=== PATIENT | female | born 1940 | race Asian ===

== ENCOUNTER 2016-09-05 07:24 | Day surgery (SDC) | payer MEDICARE, OTHER ==
[~2016-09-05] VITALS: Ht 157.5 cm; Wt 62.7 kg
[~2016-09-05 07:24] MED LIST: ASPI81TA2 PO; ATOR10TA69 PO; CARV3 PO; FEBU40T PO; MULT-959 PO; OMEG-11 PO; RANO500T3 PO
[2016-09-05] MEDS ORDERED: TROPICAMIDE 1% 2 ML OPHTHALMIC SOLUTION ONE (07:38)
[2016-09-05] MEDS ORDERED: BESIFLOXACIN HCL 0.6% 5 ML OPHTHALMIC SUSPENSION ONE (07:38)
[2016-09-05] MEDS ORDERED: PHENYLEPHRINE HCL 2.5% 2 ML OPHTHALMIC SOLUTION ONE (07:38)
[2016-09-05] MEDS ORDERED: DICLOFENAC SODIUM 0.1% 2.5 ML OPHTHALMIC SOLUTION ONE (07:38)
[2016-09-05] MEDS ORDERED: RINGERS SOLUTION,LACTATED 500 ML IV ONE ×2 (07:38→08:00)
[2016-09-05] MEDS ORDERED: DICLOFENAC SODIUM 0.1% 2.5 ML OPHTHALMIC SOLUTION OS ONE (08:00)
[2016-09-05] MEDS ORDERED: BESIFLOXACIN HCL 0.6% 5 ML OPHTHALMIC SUSPENSION OS ONE (08:00)
[2016-09-05] MEDS: PHENYLEPHRINE HCL 2.5% 2 ML OPHTHALMIC SOLUTION OS SCH ×2 (08:19→08:25)
[2016-09-05] MEDS: TROPICAMIDE 1% 2 ML OPHTHALMIC SOLUTION OS SCH ×2 (08:19→08:25)
[2016-09-05] MEDS ORDERED: VALS160T2 PO (08:29)
[2016-09-05] MEDS ORDERED: MIDAZOLAM HCL 2 MG/2 ML VIAL IVP ONE (12:00)
[2016-09-05] MEDS ORDERED: FentaNYL CITRATE-PF 100 MCG/2 ML VIAL IVP ONE (12:00)
[2016-09-05] MEDS ORDERED: HYALURONATE SOD/CHONDROITIN SOD 0.5 ML VIAL IO ONE (15:41)
[2016-09-05] MEDS ORDERED: POVIDONE-IODINE 15 ML SOLUTION UD TP ONE (15:41)
[2016-09-05] MEDS ORDERED: TETRACAINE HCL VISCOUS 0.5% 0.6 ML OPHTHALMIC SOLUTION OD ONE (15:41)
[2016-09-05] MEDS ORDERED: BALANCED SALT 15 ML OPHTHALMIC IRRIG.SOLN IO ONE (15:41)
[2016-09-05] MEDS ORDERED: LIDOCAINE HCL 1% 20 ML VIAL IARTIC ONE (15:41)
[2016-09-05] MEDS ORDERED: HYALURONATE SODIUM 12 MG/ML 0.8 ML SYRINGE IO ONE (15:41)
== END 2016-09-05 10:45 | disposition home or self-care (01) ==
LOC: SURGERY 07:24
PROVIDERS: ATTEND Specialist
DX: H25.012 Cortical age-related cataract, left eye (principal); I25.10 Atherosclerotic heart disease of native coronary artery without angina pectoris; I10 Essential (primary) hypertension; E78.00 Pure hypercholesterolemia, unspecified; M19.90 Unspecified osteoarthritis, unspecified site; Z90.49 Acquired absence of other specified parts of digestive tract; Z90.710 Acquired absence of both cervix and uterus
CPT/HCPCS: 66984; 93005; C1780; J2250; J3010; J3490 ×2; J7120

== ENCOUNTER 2017-05-27 11:35 | Emergency (ER) | payer MEDICARE, OTHER ==
[~2017-05-27] VITALS: Ht 157.5 cm; Wt 62.3 kg
[~2017-05-27 11:35] MED LIST changes: -ASPI81TA2 PO; +ASPI81TA39 PO; +VALS160T2 PO
[2017-05-27] MEDS ORDERED: LEVO500 PO (11:40)
[2017-05-27] MEDS ORDERED: GUAIF600 PO (11:40)
[2017-05-27] MEDS ORDERED: HYDR10TA31 PO (11:43)
[2017-05-27] MEDS ORDERED: NITR.4 SL (11:43)
[2017-05-27 13:10] LABS: INFLUENZA TYPE B NEGATIVE FOR TYPE B (NEGATIVE)
[2017-05-27] MEDS ORDERED: IPRATROPIUM BROMIDE 0.5 MG/2.5 ML NEB SOLUTION NEB ONE (13:15)
[2017-05-27] MEDS ORDERED: ALBUTEROL SULFATE 2.5 MG/0.5 ML NEB SOLUTION NEB ONE (13:15)
[2017-05-27 13:33] LABS: BASOPHILS # (AUTO) 0.02 K/uL (0.00-0.20); BASOPHILS % (AUTO) 0.2 % (0.0-2.0); EOSINOPHILS # (AUTO) 0.12 K/uL (0.00-0.70); EOSINOPHILS % (AUTO) 1.49 % (1.0-6.0); HEMATOCRIT 35.9 % (36-46); LYMPHOCYTES # (AUTO) 2.1 K/uL (1.0-4.8); LYMPHOCYTES % (AUTO) 26.1 % (22.0-44.0); MEAN CORPUSCULAR HEMOGLOBIN 30.8 pg (26.0-34.0); MEAN CORPUSCULAR HGB CONC 33.5 G/dL (31.0-37.0); MEAN CORPUSCULAR VOLUME 92 fL (80-100); MONOCYTES # (AUTO) 0.7 K/uL (0.1-1.0); MONOCYTES % (AUTO) 8.6 % (2.0-9.0); NEUTROPHILS % (AUTO) 63.6 % (40.0-70.0); PLATELET COUNT (AUTO) 240 K/uL (150-450); RED CELL DISTRIBUTION WIDTH 12.5 % (11.5-14.5); WHITE BLOOD COUNT (AUTO) 7.9 K/uL (4.5-11.0)
[2017-05-27 13:42] VITALS: BP 143/93
[2017-05-27 13:52] LABS: CALCIUM, TOTAL 9.1 mg/dL (8.8-10.5); CREATININE 1.08 mg/dL (0.60-1.30); POTASSIUM 4.2 mmol/L (3.5-5.1)
[2017-05-27 13:57] LABS: ALBUMIN 3.4 g/dL (3.4-5.0); BILIRUBIN,TOTAL 0.5 mg/dL (0.1-1.0); TOTAL PROTEIN, SERUM 7.2 g/dL (6.4-8.2)
== END 2017-05-27 14:35 | disposition home or self-care (01) ==
LOC: EMS 11:41
DX: J06.9 Acute upper respiratory infection, unspecified (principal); I25.10 Atherosclerotic heart disease of native coronary artery without angina pectoris; I10 Essential (primary) hypertension; I20.9 Angina pectoris, unspecified; Z79.82 Long term (current) use of aspirin
CPT/HCPCS: 71020; 87804; 93005; 94640; 99285

== ENCOUNTER → 2018-06-12 | Outpatient (CLI) | payer MEDICARE, OTHER ==
[~2018-06-12] MED LIST changes: +GUAIF600 PO; +HYDR10TA31 PO; +LEVO500 PO; +NITR.4 SL
[2018-06-12 12:07] LABS: EOSINOPHILS % (AUTO) 3.4 % (1.0-6.0); HEMOGLOBIN 12.5 g/dL (12.0-16.0); LYMPHOCYTES # (AUTO) 1.8 K/uL (1.0-4.8); LYMPHOCYTES % (AUTO) 32.5 % (22.0-44.0); MEAN CORPUSCULAR HGB CONC 34.8 G/dL (31.0-37.0); MEAN CORPUSCULAR VOLUME 89 fL (80-100); MONOCYTES # (AUTO) 0.4 K/uL (0.1-1.0); MONOCYTES % (AUTO) 7.4 % (2.0-9.0); NEUTROPHILS # (AUTO) 3.1 K/uL (1.8-7.7); NEUTROPHILS % (AUTO) 55.7 % (40.0-70.0); RED BLOOD CELL COUNT(AUTO) 4.04 MIL/uL (4.00-5.20); RED CELL DISTRIBUTION WIDTH 12.7 % (11.5-14.5)
[2018-06-12 12:43] LABS: HEMOGLOBIN A1C 5.9 % (4.5-6.2)
[2018-06-12 12:52] LABS: PLATELET COUNT (AUTO) 209 K/uL (150-450)
[2018-06-12 13:16] LABS: ALBUMIN 3.4 g/dL (3.4-5.0); BILIRUBIN,TOTAL 0.3 mg/dL (0.1-1.0); CALCIUM, TOTAL 9.1 mg/dL (8.8-10.5); CHOL/HDL RATIO 5.1 (3.9-5.7); CREATININE 1.33 mg/dL (0.60-1.30); POTASSIUM 4.7 mmol/L (3.5-5.1); THYROID STIMULATING HORMONE 1.41 uIU/mL (0.36-3.74); TOTAL PROTEIN, SERUM 7.3 g/dL (6.4-8.2)
== END | disposition home or self-care (01) ==
LOC: LABPV 10:12
PROVIDERS: ATTEND Internal Medicine
DX: E78.2 Mixed hyperlipidemia (principal); I13.0 Hypertensive heart and chronic kidney disease with heart failure and stage 1 through stage 4 chronic kidney disease, or unspecified chronic kidney disease; N18.3 Chronic kidney disease, stage 3 (moderate); I50.9 Heart failure, unspecified; E66.9 Obesity, unspecified; R73.09 Other abnormal glucose; R22.0 Localized swelling, mass and lump, head; Z79.82 Long term (current) use of aspirin
CPT/HCPCS: 83036; 84443

== ENCOUNTER → 2018-06-18 | Outpatient (CLI) | payer MEDICARE, OTHER | END | disposition home or self-care (01) | LOC: RADPV 12:17 | PROVIDERS: ATTEND Internal Medicine | DX: R22.0 Localized swelling, mass and lump, head (principal); R22.1 Localized swelling, mass and lump, neck; I70.0 Atherosclerosis of aorta | CPT/HCPCS: 76999 ==

== ENCOUNTER → 2018-09-18 | Outpatient (CLI) | payer MEDICARE, OTHER ==
[2018-09-18 10:31] LABS: BASOPHILS % (AUTO) 0.4 % (0.0-2.0); EOSINOPHILS % (AUTO) 2.2 % (1.0-6.0); HEMATOCRIT 40.1 % (36-46); HEMOGLOBIN 13.6 g/dL (12.0-16.0); LYMPHOCYTES # (AUTO) 2.1 K/uL (1.0-4.8); LYMPHOCYTES % (AUTO) 29.8 % (22.0-44.0); MEAN CORPUSCULAR HEMOGLOBIN 30.1 pg (26.0-34.0); MEAN CORPUSCULAR HGB CONC 33.8 G/dL (31.0-37.0); MEAN CORPUSCULAR VOLUME 89 fL (80-100); MONOCYTES # (AUTO) 0.4 K/uL (0.1-1.0); MONOCYTES % (AUTO) 5.3 % (2.0-9.0); NEUTROPHILS # (AUTO) 4.5 K/uL (1.8-7.7); NEUTROPHILS % (AUTO) 62.3 % (40.0-70.0); RED BLOOD CELL COUNT(AUTO) 4.51 MIL/uL (4.00-5.20); RED CELL DISTRIBUTION WIDTH 13.2 % (11.5-14.5)
[2018-09-18 10:46] LABS: ALBUMIN 3.7 g/dL (3.4-5.0); BILIRUBIN,TOTAL 0.5 mg/dL (0.1-1.0); CALCIUM, TOTAL 9.5 mg/dL (8.8-10.5); CREATININE 1.46 mg/dL (0.60-1.30); POTASSIUM 4.2 mmol/L (3.5-5.1); TOTAL PROTEIN, SERUM 7.4 g/dL (6.4-8.2); URIC ACID 8.4 mg/dL (2.6-7.2)
[2018-09-18 11:41] LABS: PLATELET COUNT (AUTO) 181 K/uL (150-450)
== END | disposition home or self-care (01) ==
LOC: LABPV 09:03
PROVIDERS: ATTEND Internal Medicine Infectious Disease
DX: M17.11 Unilateral primary osteoarthritis, right knee (principal); I13.0 Hypertensive heart and chronic kidney disease with heart failure and stage 1 through stage 4 chronic kidney disease, or unspecified chronic kidney disease; I50.22 Chronic systolic (congestive) heart failure; N18.3 Chronic kidney disease, stage 3 (moderate); E78.2 Mixed hyperlipidemia; E78.00 Pure hypercholesterolemia, unspecified; Z79.82 Long term (current) use of aspirin
CPT/HCPCS: 84550; 86038; 86430; 86431

== ENCOUNTER → 2019-08-12 | Outpatient (CLI) | payer MEDICARE, OTHER ==
[~2019-08-12] MED LIST changes: +LEVO-72 PO; -LEVO500 PO; -NITR.4 SL; +NITR0.4T52 SL
== END | disposition home or self-care (01) ==
LOC: RADPV 14:50
PROVIDERS: ATTEND Internal Medicine Infectious Disease
DX: M54.9 Dorsalgia, unspecified (principal)
CPT/HCPCS: 72100

== ENCOUNTER 2020-01-05 16:56 | Emergency (ER) | payer MEDICARE, OTHER ==
[~2020-01-05] VITALS: Ht 157.5 cm; Wt 56.4 kg
[2020-01-05] MEDS ORDERED: ALLO300 PO (17:10)
[2020-01-05] MEDS ORDERED: LOSA25TA71 PO (17:10)
[2020-01-05] MEDS ORDERED: HYDR25TA84 PO (17:10)
[2020-01-05] MEDS ORDERED: BACITRACIN 0.9 GM PACKET OINTMENT TP ONE (18:00)
[2020-01-05] MEDS ORDERED: ACETAMINOPHEN 500 MG TABLET PO ONE (18:00)
[2020-01-05] MEDS ORDERED: ATOR40TA28 PO (18:07)
[2020-01-05] MEDS ORDERED: MULT-959 PO (18:07)
[2020-01-05] MEDS ORDERED: OMEP20CA13 PO (18:10)
[2020-01-05] MEDS ORDERED: ASPI-1111 PO (18:10)
[2020-01-05] MEDS ORDERED: ALLO100T PO (18:10)
[2020-01-05] MEDS ORDERED: LOSA50TA37 PO (18:10)
[2020-01-05 19:11] VITALS: BP 132/68
== END 2020-01-05 19:39 | disposition home or self-care (01) ==
LOC: EMS 16:56
DX: S30.0XXA Contusion of lower back and pelvis, initial encounter (principal); I25.10 Atherosclerotic heart disease of native coronary artery without angina pectoris; I10 Essential (primary) hypertension; W19.XXXA Unspecified fall, initial encounter; Y93.89 Activity, other specified; Y92.89 Other specified places as the place of occurrence of the external cause; Y99.8 Other external cause status
CPT/HCPCS: 73502

== ENCOUNTER 2021-06-12 17:59 | Inpatient (IN) | payer MEDICARE, OTHER ==
[~2021-06-12] VITALS: Ht 165.1 cm; Wt 68.1 kg
[~2021-06-12 17:59] MED LIST changes: +ALLO100T2 PO; +ASPI-1444 PO; -ASPI81TA39 PO; -ATOR10TA69 PO; +ATOR40TA28 PO; -GUAIF600 PO; -HYDR10TA31 PO; +HYDR25TA84 PO; -LEVO-72 PO; +LOSA-382 PO; +OMEP20CA13 PO; -VALS160T2 PO
[2021-06-12 18:43] LABS: BASOPHILS % (AUTO) 0.4 % (0.0-2.0); EOSINOPHILS % (AUTO) 0.2 % (1.0-6.0); HEMATOCRIT 32.6 % (36-46); HEMOGLOBIN 11.4 g/dL (12.0-16.0); LYMPHOCYTES % (AUTO) 28.6 % (22.0-44.0); MEAN CORPUSCULAR HEMOGLOBIN 30.7 pg (26.0-34.0); MEAN CORPUSCULAR HGB CONC 35.1 G/dL (31.0-37.0); MEAN CORPUSCULAR VOLUME 88 fL (80-100); MONOCYTES # (AUTO) 0.4 K/uL (0.1-1.0); MONOCYTES % (AUTO) 11.8 % (2.0-9.0); NEUTROPHILS # (AUTO) 2.1 K/uL (1.8-7.7); PLATELET COUNT (AUTO) 167 K/uL (150-450); RED BLOOD CELL COUNT(AUTO) 3.72 MIL/uL (4.00-5.20); RED CELL DISTRIBUTION WIDTH 13.4 % (11.5-14.5)
[2021-06-12 19:05] LABS: ALBUMIN 3.5 g/dL (3.4-5.0); BILIRUBIN,TOTAL 0.5 mg/dL (0.1-1.0); CALCIUM, TOTAL 8.7 mg/dL (8.8-10.5); CREATININE 1.11 mg/dL (0.60-1.30); POTASSIUM 4.8 mmol/L (3.5-5.1); TOTAL PROTEIN, SERUM 7.3 g/dL (6.4-8.2)
[2021-06-12] MEDS ORDERED: SODIUM CHLORIDE 0.9% 1,000 ML IV ONE (19:45)
[2021-06-12 20:57] LABS: COVID AG,FIA SOURCE NASAL SWAB
[2021-06-12] MEDS ORDERED: SODIUM CHLORIDE 3% 500 ML IV ONE (22:15)
[2021-06-12 22:36] LABS: THYROID STIMULATING HORMONE 0.95 uIU/mL (0.36-3.74)
[2021-06-12] MEDS ORDERED: ONDANSETRON HCL 4 MG/2 ML VIAL IVP PRN (22:45)
[2021-06-12] MEDS: HEPARIN SODIUM,PORCINE 5,000 UNITS/ML VIAL SQ SCH (23:08)
[2021-06-12] MEDS ORDERED: MELATONIN 5 MG TABLET PO PRN (23:15)
[2021-06-13 00:35] LABS: CALCIUM, TOTAL 8.5 mg/dL (8.8-10.5); CREATININE 1.09 mg/dL (0.60-1.30); POTASSIUM 4.5 mmol/L (3.5-5.1)
[2021-06-13 03:35] LABS: CALCIUM, TOTAL 8.2 mg/dL (8.8-10.5); CREATININE 1.04 mg/dL (0.60-1.30); POTASSIUM 4.2 mmol/L (3.5-5.1)
[2021-06-13] MEDS ORDERED: AmLODIPine BESYLATE 5 MG TABLET PO ONE (03:45)
[2021-06-13] MEDS ORDERED: NITROGLYCERIN 0.4 MG SUBLINGUAL TABLET #25 SL PRN (07:15)
[2021-06-13 07:16] LABS: ALBUMIN 3.3 g/dL (3.4-5.0); BILIRUBIN,TOTAL 0.5 mg/dL (0.1-1.0); CALCIUM, TOTAL 8.5 mg/dL (8.8-10.5); CREATININE 1.09 mg/dL (0.60-1.30); POTASSIUM 4.6 mmol/L (3.5-5.1); TOTAL PROTEIN, SERUM 7.1 g/dL (6.4-8.2)
[2021-06-13] MEDS: HEPARIN SODIUM,PORCINE 5,000 UNITS/ML VIAL SQ SCH ×3 (08:00→23:35)
[2021-06-13] MEDS ORDERED: OMEGA-3/DHA/EPA/FISH OIL 500 MG CAPSULE PO SCH (09:00)
[2021-06-13] MEDS ORDERED: FEBUXOSTAT 40 MG TABLET PO SCH (09:00)
[2021-06-13 09:05] LABS: CALCIUM, TOTAL 8.1 mg/dL (8.8-10.5); CREATININE 1.05 mg/dL (0.60-1.30); POTASSIUM 4.2 mmol/L (3.5-5.1)
[2021-06-13] MEDS ORDERED: IPRATROPIUM BROMIDE 0.5 MG/2.5 ML NEB SOLUTION NEB ONE (09:15)
[2021-06-13] MEDS ORDERED: ALBUTEROL SULFATE 2.5 MG/0.5 ML NEB SOLUTION NEB ONE (09:15)
[2021-06-13] MEDS: CARVEDILOL 3.125 MG TABLET PO SCH ×2 (10:10→20:54)
[2021-06-13] MEDS: ALLOPURINOL 100 MG TABLET PO SCH (10:10)
[2021-06-13] MEDS: HydrALAZINE HCL 25 MG TABLET PO SCH ×3 (10:10→20:54)
[2021-06-13] MEDS: ASPIRIN 81 MG DR TABLET PO SCH (10:10)
[2021-06-13] MEDS: ATORVASTATIN CALCIUM 40 MG TABLET PO SCH (10:10)
[2021-06-13 12:28] LABS: CALCIUM, TOTAL 8.4 mg/dL (8.8-10.5); CREATININE 0.96 mg/dL (0.60-1.30); POTASSIUM 4.5 mmol/L (3.5-5.1)
[2021-06-13 12:55] VITALS: BP 180/77
[2021-06-13] MEDS ORDERED: MULT-660 PO (13:06)
[2021-06-13] MEDS: ACETAMINOPHEN 325 MG TABLET PO PRN ×2 (14:16→18:27)
[2021-06-13] MEDS: MULTIVITAMINS, THERAPEUTIC TABLET PO SCH (14:17)
[2021-06-13 14:32] LABS: CALCIUM, TOTAL 8.3 mg/dL (8.8-10.5); CREATININE 1.06 mg/dL (0.60-1.30); POTASSIUM 4.5 mmol/L (3.5-5.1)
[2021-06-13] MEDS ORDERED: INFLUENZA VIRUS VACCINE QVS 2021-22 (6MO+)/PF 60 MCG/0.5 ML SYRINGE IM. ONE (14:45)
[2021-06-13 16:40] VITALS: BP 172/82
[2021-06-13 18:09] LABS: CALCIUM, TOTAL 8.4 mg/dL (8.8-10.5)
[2021-06-13 18:15] LABS: POTASSIUM 4.2 mmol/L (3.5-5.1)
[2021-06-13 20:30] VITALS: BP 183/88
[2021-06-13 20:59] LABS: CALCIUM, TOTAL 8.2 mg/dL (8.8-10.5); CREATININE 1.06 mg/dL (0.60-1.30); POTASSIUM 4.2 mmol/L (3.5-5.1)
[2021-06-13] MEDS ORDERED: SODIUM CHLORIDE 3% 500 ML IV ONE (23:00)
[2021-06-14] VITALS (7 sets, daily range): BP systolic 133–186; BP diastolic 61–90
[2021-06-14 03:28] LABS: POTASSIUM,URINE RANDOM 38 mmol/L (12-75); SODIUM,URINE RANDOM 74 mmol/l (20-110)
[2021-06-14 03:31] LABS: APPEARANCE,URINE CLOUDY (CLEAR); BILIRUBIN,URINE NEGATIVE (NEGATIVE); GLUCOSE, URINE (UA) NEGATIVE (NEGATIVE); KETONES,URINE NEGATIVE (NEGATIVE); LEUKOCYTE ESTERASE ,URINE NEGATIVE (NEGATIVE); NITRATE,URINE NEGATIVE (NEGATIVE); OCCULT BLOOD,URINE NEGATIVE (NEGATIVE); PROTEIN,URINE SEE CONFIRM (NEGATIVE)
[2021-06-14 03:35] LABS: BACTERIA,URINE Moderate /HPF (None Seen); RBC,URINE 0-2 /HPF (0-2); SULFOSALICYLIC ACID,URINE 4+ (Negative)
[2021-06-14] MEDS: BENZONATATE 100 MG CAPSULE PO PRN ×2 (03:55→20:41)
[2021-06-14] MEDS: AmLODIPine BESYLATE 10 MG TABLET PO SCH (05:10)
[2021-06-14 05:23] LABS: CALCIUM, TOTAL 7.8 mg/dL (8.8-10.5); CREATININE 1.06 mg/dL (0.60-1.30)
[2021-06-14] MEDS: OMEPRAZOLE 20 MG CAPSULE PO SCH (05:36)
[2021-06-14] MEDS: HydrALAZINE HCL 25 MG TABLET PO SCH ×3 (08:04→20:27)
[2021-06-14] MEDS: ATORVASTATIN CALCIUM 40 MG TABLET PO SCH (08:05)
[2021-06-14] MEDS: MULTIVITAMINS, THERAPEUTIC TABLET PO SCH (08:05)
[2021-06-14] MEDS: ASPIRIN 81 MG DR TABLET PO SCH (08:05)
[2021-06-14] MEDS: ALLOPURINOL 100 MG TABLET PO SCH (08:05)
[2021-06-14] MEDS: CARVEDILOL 3.125 MG TABLET PO SCH ×2 (08:05→20:27)
[2021-06-14] MEDS: HEPARIN SODIUM,PORCINE 5,000 UNITS/ML VIAL SQ SCH ×3 (08:06→23:43)
[2021-06-14] MEDS: SODIUM CHLORIDE 1 GM TABLET PO SCH ×2 (16:00→20:28)
[2021-06-15] VITALS (7 sets, daily range): BP systolic 139–187; BP diastolic 52–86
[2021-06-15] MEDS: OMEPRAZOLE 20 MG CAPSULE PO SCH (06:07)
[2021-06-15 08:50] LABS: CALCIUM, TOTAL 8.1 mg/dL (8.8-10.5); CREATININE 1.05 mg/dL (0.60-1.30); POTASSIUM 3.7 mmol/L (3.5-5.1)
[2021-06-15] MEDS: HEPARIN SODIUM,PORCINE 5,000 UNITS/ML VIAL SQ SCH ×3 (09:00→23:43)
[2021-06-15] MEDS: MULTIVITAMINS, THERAPEUTIC TABLET PO SCH (09:00)
[2021-06-15] MEDS: ATORVASTATIN CALCIUM 40 MG TABLET PO SCH (09:00)
[2021-06-15] MEDS: SODIUM CHLORIDE 1 GM TABLET PO SCH ×3 (09:01→20:08)
[2021-06-15] MEDS: ASPIRIN 81 MG DR TABLET PO SCH (09:01)
[2021-06-15] MEDS: CARVEDILOL 3.125 MG TABLET PO SCH ×2 (09:01→20:08)
[2021-06-15] MEDS: ALLOPURINOL 100 MG TABLET PO SCH (09:02)
[2021-06-15] MEDS: HydrALAZINE HCL 25 MG TABLET PO SCH ×3 (10:10→20:07)
[2021-06-15] MEDS: AmLODIPine BESYLATE 10 MG TABLET PO SCH (10:10)
[2021-06-15] MEDS: BENZONATATE 100 MG CAPSULE PO PRN (20:10)
[2021-06-16 04:18] VITALS: BP 166/85
[2021-06-16 06:33] LABS: CALCIUM, TOTAL 8.5 mg/dL (8.8-10.5); CREATININE 1.18 mg/dL (0.60-1.30); MAGNESIUM 2.2 mg/dL (1.80-2.40); POTASSIUM 3.5 mmol/L (3.5-5.1)
[2021-06-16] MEDS: OMEPRAZOLE 20 MG CAPSULE PO SCH (06:33)
[2021-06-16 07:12] VITALS: BP 162/80
[2021-06-16] MEDS: HEPARIN SODIUM,PORCINE 5,000 UNITS/ML VIAL SQ SCH ×2 (08:07→15:52)
[2021-06-16] MEDS: ASPIRIN 81 MG DR TABLET PO SCH (08:08)
[2021-06-16] MEDS: MULTIVITAMINS, THERAPEUTIC TABLET PO SCH (08:09)
[2021-06-16] MEDS: SODIUM CHLORIDE 1 GM TABLET PO SCH ×2 (08:10→15:52)
[2021-06-16] MEDS: ALLOPURINOL 100 MG TABLET PO SCH (08:10)
[2021-06-16] MEDS: HydrALAZINE HCL 25 MG TABLET PO SCH ×2 (08:10→15:52)
[2021-06-16] MEDS: ATORVASTATIN CALCIUM 40 MG TABLET PO SCH (08:10)
[2021-06-16] MEDS: AmLODIPine BESYLATE 10 MG TABLET PO SCH (08:11)
[2021-06-16] MEDS ORDERED: NACL1 PO (10:39)
[2021-06-16] MEDS: CARVEDILOL 3.125 MG TABLET PO SCH (11:01)
[2021-06-16 11:14] VITALS: BP 155/72
[2021-06-16 15:15] VITALS: BP 155/73
== END 2021-06-16 18:17 | disposition home or self-care (01) | DRG 640 ==
LOC: EMS 18:02 → 5N 06-13 06:15
PROVIDERS: ADMIT Internal Medicine; ATTEND Internal Medicine
DX: E87.1 Hypo-osmolality and hyponatremia (principal); U07.1 COVID-19; G93.41 Metabolic encephalopathy; I10 Essential (primary) hypertension; I25.10 Atherosclerotic heart disease of native coronary artery without angina pectoris; E78.5 Hyperlipidemia, unspecified; D72.819 Decreased white blood cell count, unspecified; N18.30 Chronic kidney disease, stage 3 unspecified; I12.9 Hypertensive chronic kidney disease with stage 1 through stage 4 chronic kidney disease, or unspecified chronic kidney disease; Z82.49 Family history of ischemic heart disease and other diseases of the circulatory system; Z90.710 Acquired absence of both cervix and uterus
CPT/HCPCS: 71045; 80048; 80053; 81001; 81002; 82533; 83735; 83930; 83935; 84100; 84133; 84300; 84443; 84484; 85025; 87086; 93005; 94640; 99291; J1644; J7030; 36415-L1; 36415-TC; J7613; U0003

== ENCOUNTER 2022-11-26 19:47 | Emergency (ER) | payer MEDICARE, OTHER ==
[~2022-11-26] VITALS: Ht 157.5 cm; Wt 57.7 kg
[~2022-11-26 19:47] MED LIST changes: +ALLO-97 PO; -ALLO100T2 PO; -HYDR25TA84 PO; +MULT-660 PO; -MULT-959 PO; +NACL1 PO; +RANO500T27 PO; -RANO500T3 PO
[2022-11-26 20:17] VITALS: TEMP 98.2
[2022-11-26 23:56] VITALS: BP 152/76; PULSE 58; RESP 16
[2022-11-27] MEDS ORDERED: CEPHALEXIN MONOHYDRATE 500 MG CAPSULE PO ONE (02:15)
== END 2022-11-27 02:28 | disposition home or self-care (01) ==
LOC: EMS 19:51
DX: S01.512A Laceration without foreign body of oral cavity, initial encounter (principal); I25.119 Atherosclerotic heart disease of native coronary artery with unspecified angina pectoris; I10 Essential (primary) hypertension; E78.00 Pure hypercholesterolemia, unspecified; Z90.710 Acquired absence of both cervix and uterus; Z79.82 Long term (current) use of aspirin; X58.XXXA Exposure to other specified factors, initial encounter; Y93.89 Activity, other specified; Y92.89 Other specified places as the place of occurrence of the external cause; Y99.9 Unspecified external cause status
CPT/HCPCS: 41250; 99283

== ENCOUNTER 2024-07-07 16:39 | Inpatient (IN) | payer MEDICARE, OTHER ==
[~2024-07-07] VITALS: Ht 149.9 cm; Wt 57.0 kg
[~2024-07-07 16:39] MED LIST changes: -NACL1 PO; +SODI100067 PO
[2024-07-07] MEDS ORDERED: ROSU20TA98 PO (16:47)
[2024-07-07] MEDS ORDERED: ISOS-58 PO (16:47)
[2024-07-07] MEDS ORDERED: CARV6.2534 PO (16:47)
[2024-07-07 17:41] LABS: BASOPHILS % (AUTO) 0.5 % (0.0-2.0); EOSINOPHILS % (AUTO) 3.7 % (1.0-6.0); HEMATOCRIT 34.4 % (36-46); HEMOGLOBIN 11.6 g/dL (12.0-16.0); LYMPHOCYTES # (AUTO) 1.9 K/uL (1.0-4.8); LYMPHOCYTES % (AUTO) 27.3 % (22.0-44.0); MEAN CORPUSCULAR HEMOGLOBIN 31.6 pg (26.0-34.0); MEAN CORPUSCULAR HGB CONC 33.7 G/dL (31.0-37.0); MEAN CORPUSCULAR VOLUME 94 fL (80-100); MONOCYTES # (AUTO) 0.6 K/uL (0.1-1.0); MONOCYTES % (AUTO) 8.8 % (2.0-9.0); NEUTROPHILS # (AUTO) 4.1 K/uL (1.8-7.7); NEUTROPHILS % (AUTO) 59.7 % (40.0-70.0); PLATELET COUNT (AUTO) 185 K/uL (150-450); RED BLOOD CELL COUNT(AUTO) 3.67 MIL/uL (4.00-5.20); WHITE BLOOD COUNT (AUTO) 6.8 K/uL (4.5-11.0)
[2024-07-07 17:44] LABS: CALCIUM, TOTAL 8.7 mg/dL (8.8-10.5); CREATININE 1.86 mg/dL (0.60-1.30); POTASSIUM 4.4 mmol/L (3.5-5.1)
[2024-07-07 17:52] LABS: TROPONIN I-HIGH SENSITIVITY 24 ng/L (<51)
[2024-07-07 21:22] LABS: CREATINE KINASE, TOTAL ONLY 46 U/L (26-192)
[2024-07-07 21:28] LABS: B-TYPE NATRIURETIC PEPTIDE 173 pg/mL (0-100)
[2024-07-07 21:37] LABS: COVID AG,FIA SOURCE NASAL SWAB
[2024-07-07 21:49] LABS: TROPONIN I-HIGH SENSITIVITY 25 ng/L (<51)
[2024-07-07 21:58] LABS: SARS-COV2 (COVID) ANTIGEN,FIA Negative (Negative)
[2024-07-07 22:00] LABS: INFLUENZA TYPE A NEGATIVE FOR TYPE A (NEGATIVE); INFLUENZA TYPE B NEGATIVE FOR TYPE B (NEGATIVE)
[2024-07-07 23:16] LABS: APPEARANCE,URINE CLEAR (CLEAR); BILIRUBIN,URINE NEGATIVE (NEGATIVE); COLOR,URINE LIGHT YELLOW (YELLOW); GLUCOSE, URINE (UA) NEGATIVE (NEGATIVE); KETONES,URINE NEGATIVE (NEGATIVE); LEUKOCYTE ESTERASE ,URINE MODERATE (NEGATIVE); OCCULT BLOOD,URINE NEGATIVE (NEGATIVE); PH,URINE 5.5 (5.0-8.0); PROTEIN,URINE 30-70 mg/dL (NEGATIVE); SPECIFIC GRAVITIY, URINE 1.013 (1.003-1.030); UROBILINOGEN,URINE <=1.0 mg/dL (<=1.0)
[2024-07-07 23:31] LABS: BACTERIA,URINE Few /HPF (None Seen); NITRATE,URINE NEGATIVE (NEGATIVE); RBC,URINE None Seen /HPF (0-2); SQUAMOUS EPITHELIAL CELL,UR Few /LPF (None Seen)
[2024-07-07] MEDS ORDERED: NITR0.4T50 SL (23:34)
[2024-07-07 23:51] LABS: GLUCOMETER DEV NAME(LOC) ER.7; GLUCOSE,POINT OF CARE 89 MG/DL (70-110)
[2024-07-08] MEDS ORDERED: OxyCODONE HCL/ACETAMINOPHEN 5-325 MG TABLET PO PRN (07:30)
[2024-07-08] MEDS ORDERED: MORPHINE SULFATE 2 MG/ML SYRINGE IVP PRN (07:30)
[2024-07-08] MEDS ORDERED: IPRATROPIUM BROMIDE 0.5 MG/2.5 ML NEB SOLUTION NEB PRN (07:30)
[2024-07-08] MEDS ORDERED: ACETAMINOPHEN 325 MG TABLET PO PRN (07:30)
[2024-07-08] MEDS ORDERED: ALBUTEROL SULFATE 2.5 MG/0.5 ML NEB SOLUTION NEB PRN (07:30)
[2024-07-08] MEDS ORDERED: ZOLPIDEM TARTRATE 5 MG TABLET PO PRN (07:30)
[2024-07-08] MEDS ORDERED: MAGNESIUM HYDROXIDE SUSPENSION 30 ML UDCUP PO PRN (07:30)
[2024-07-08] MEDS ORDERED: ONDANSETRON HCL 4 MG/2 ML VIAL IVP PRN (07:30)
[2024-07-08] MEDS ORDERED: BISACODYL 10 MG RECTAL RECTAL SUPPOSITORY PR PRN (07:30)
[2024-07-08] MEDS: CARVEDILOL 6.25 MG TABLET PO ONE (08:06)
[2024-07-08] MEDS: LOSARTAN POTASSIUM 50 MG TABLET PO ONE (08:07)
[2024-07-08] MEDS: PANTOPRAZOLE SODIUM 40 MG/VIAL IVP SCH (08:08)
[2024-07-08] MEDS: HEPARIN SODIUM,PORCINE 5,000 UNITS/ML VIAL SQ SCH (08:09)
[2024-07-08] MEDS: RANOLAZINE 500 MG ER TABLET PO SCH (08:45)
[2024-07-08] MEDS: ISOSORBIDE MONONITRATE 20 MG TABLET PO SCH (08:45)
[2024-07-08] MEDS: ROSUVASTATIN CALCIUM 20 MG TABLET PO SCH (08:45)
[2024-07-08] MEDS: ALLOPURINOL 100 MG TABLET PO SCH (08:45)
[2024-07-08 10:04] VITALS: BP 141/61; PULSE 63; RESP 18; TEMP 97.8; O2SAT 98
[2024-07-08] MEDS: ASPIRIN 81 MG DR TABLET PO SCH (10:53)
[2024-07-08 16:00] VITALS: BP_SYST 140; BP_SYST 158; BP_DIAS 88; PULSE 54; PULSE 89; RESP 16; RESP 18; TEMP 98.2; TEMP 98.9; O2SAT 95; O2SAT 99
[2024-07-08] MEDS: NIFEdipine 30 MG ER TABLET PO ONE (17:52)
[2024-07-08 20:45] VITALS: BP 129/73; PULSE 59; RESP 18; TEMP 98; O2SAT 99
[2024-07-08] MEDS: CARVEDILOL 6.25 MG TABLET PO SCH (21:00)
[2024-07-09 00:18] VITALS: BP 138/66; PULSE 65; RESP 17; TEMP 98.2; O2SAT 98
[2024-07-09 04:30] VITALS: BP 142/79; PULSE 74; RESP 18; TEMP 98.4; O2SAT 98
[2024-07-09] MEDS: LOSARTAN POTASSIUM 50 MG TABLET PO SCH (08:06)
[2024-07-09 11:00] VITALS: BP 140/69; PULSE 58; RESP 16; TEMP 98.2; O2SAT 99
[2024-07-09 15:58] VITALS: BP 142/75; PULSE 55; RESP 18; TEMP 97.8; O2SAT 99
== END 2024-07-09 18:30 | disposition home or self-care (01) | DRG 312 ==
LOC: EMS 16:39 → EDH 07-08 01:10 → 5S 07-08 09:50
PROVIDERS: ADMIT Hospitalist; ATTEND Hospitalist
DX: R55 Syncope and collapse (principal); I10 Essential (primary) hypertension; M10.9 Gout, unspecified; Z20.822 Contact with and (suspected) exposure to COVID-19; E78.00 Pure hypercholesterolemia, unspecified; I25.10 Atherosclerotic heart disease of native coronary artery without angina pectoris; Z82.49 Family history of ischemic heart disease and other diseases of the circulatory system; Z90.710 Acquired absence of both cervix and uterus; Z79.899 Other long term (current) drug therapy
CPT/HCPCS: 70450; 71045; 80048; 81001; 82550; 82962; 83880; 84484; 85025; 87804; 93005; 93306; 93880; 99285; J1644; J2470; 36415-L1; 36415-TC

== ENCOUNTER 2025-02-16 09:28 | Emergency (ER) | payer MEDICARE, OTHER ==
[~2025-02-16] VITALS: Ht 152.4 cm; Wt 56.8 kg
[~2025-02-16 09:28] MED LIST changes: -ATOR40TA28 PO; -CARV3 PO; +CARV6.2534 PO; -FEBU40T PO; +ISOS-58 PO; -MULT-660 PO; +NITR0.4T50 SL; -NITR0.4T52 SL; -OMEG-11 PO; -OMEP20CA13 PO; +ROSU20TA98 PO; -SODI100067 PO
[2025-02-16 09:41] VITALS: BP 188/84; PULSE 58; RESP 18; TEMP 98.1; O2SAT 99
[2025-02-16] MEDS: BACITRACIN 0.9 GM PACKET OINTMENT TP ONE (10:28)
== END 2025-02-16 10:51 | disposition home or self-care (01) ==
LOC: EMS 09:32
DX: S51.811A Laceration without foreign body of right forearm, initial encounter (principal); E78.00 Pure hypercholesterolemia, unspecified; I10 Essential (primary) hypertension; I25.10 Atherosclerotic heart disease of native coronary artery without angina pectoris; M10.9 Gout, unspecified; Z79.82 Long term (current) use of aspirin; Z79.899 Other long term (current) drug therapy; Z90.710 Acquired absence of both cervix and uterus; W06.XXXA Fall from bed, initial encounter; Y93.89 Activity, other specified; Y92.89 Other specified places as the place of occurrence of the external cause; Y99.8 Other external cause status
CPT/HCPCS: 99282; Z7502; Z7610

== ENCOUNTER 2025-02-18 09:35 | Emergency (ER) | payer MEDICARE, OTHER ==
[~2025-02-18] VITALS: Ht 154.9 cm; Wt 54.1 kg
[2025-02-18] MEDS ORDERED: APIX2.5T PO (09:41)
[2025-02-18] MEDS ORDERED: CLOP75TA32 PO (09:41)
[2025-02-18] MEDS ORDERED: ISOS30TA92 PO (09:41)
[2025-02-18] MEDS ORDERED: METO50 PO (09:41)
[2025-02-18 09:42] VITALS: TEMP 98.5
[2025-02-18 10:15] VITALS: BP 145/65; PULSE 62; RESP 17; O2SAT 98
[2025-02-18] MEDS: BACITRACIN 0.9 GM PACKET OINTMENT TP ONE (10:25)
== END 2025-02-18 11:19 | disposition home or self-care (01) ==
LOC: EMS 09:48
DX: S51.811D Laceration without foreign body of right forearm, subsequent encounter (principal); E78.00 Pure hypercholesterolemia, unspecified; I10 Essential (primary) hypertension; I25.10 Atherosclerotic heart disease of native coronary artery without angina pectoris; M10.9 Gout, unspecified; Z48.00 Encounter for change or removal of nonsurgical wound dressing; Z90.710 Acquired absence of both cervix and uterus; Z79.02 Long term (current) use of antithrombotics/antiplatelets; Z79.01 Long term (current) use of anticoagulants; Z79.899 Other long term (current) drug therapy; X58.XXXD Exposure to other specified factors, subsequent encounter
CPT/HCPCS: 99282; Z7502; Z7610

== ENCOUNTER 2025-02-20 09:05 | Emergency (ER) | payer MEDICARE, OTHER ==
[~2025-02-20] VITALS: Ht 154.9 cm; Wt 51.5 kg
[~2025-02-20 09:05] MED LIST changes: +APIX2.5T PO; -ASPI-1444 PO; -CARV6.2534 PO; +CLOP75TA32 PO; -ISOS-58 PO; +ISOS30TA92 PO; +METO50 PO
[2025-02-20 09:06] VITALS: TEMP 98.5
[2025-02-20] MEDS: BACITRACIN 28 GM OINTMENT TP ONE (09:32)
[2025-02-20 09:38] VITALS: BP 144/80; PULSE 75; RESP 16; O2SAT 99
== END 2025-02-20 09:51 | disposition home or self-care (01) ==
LOC: EMS 09:05
DX: S51.811D Laceration without foreign body of right forearm, subsequent encounter (principal); E78.00 Pure hypercholesterolemia, unspecified; I10 Essential (primary) hypertension; I25.10 Atherosclerotic heart disease of native coronary artery without angina pectoris; I48.0 Paroxysmal atrial fibrillation; M10.9 Gout, unspecified; Z79.01 Long term (current) use of anticoagulants; Z79.02 Long term (current) use of antithrombotics/antiplatelets; Z79.899 Other long term (current) drug therapy; Z90.710 Acquired absence of both cervix and uterus; X58.XXXD Exposure to other specified factors, subsequent encounter
CPT/HCPCS: 99282; Z7502; Z7610

== ENCOUNTER 2025-04-13 17:22 | Emergency (ER) | payer MEDICARE, OTHER ==
[~2025-04-13] VITALS: Ht 154.9 cm; Wt 81.8 kg
[2025-04-13 17:35] VITALS: BP 171/73; PULSE 60; RESP 18; TEMP 97.9; O2SAT 97
[2025-04-13 21:36] LABS: PLATELET COUNT (AUTO) 174 K/uL (150-450); RED BLOOD CELL COUNT(AUTO) 3.51 MIL/uL (4.00-5.20); RED CELL DISTRIBUTION WIDTH 14.5 % (11.5-14.5); WHITE BLOOD COUNT (AUTO) 5.4 K/uL (4.5-11.0)
[2025-04-13 21:41] LABS: CALCIUM, TOTAL 8.3 mg/dL (8.8-10.5); CREATININE 2.21 mg/dL (0.60-1.30); GLOMERULAR FILTR. RATE CALC 21.0 mL/min (>60); GLUCOSE,RANDOM 132.0 mg/dL (70-110); SODIUM SERUM 139.0 mmol/L (136-145); UREA NITROGEN, BLOOD 44.0 mg/dL (7-18)
== END 2025-04-13 22:56 | disposition home or self-care (01) ==
LOC: EMS 17:22
DX: S93.601A Unspecified sprain of right foot, initial encounter (principal); E78.00 Pure hypercholesterolemia, unspecified; I10 Essential (primary) hypertension; I25.10 Atherosclerotic heart disease of native coronary artery without angina pectoris; M10.9 Gout, unspecified; Z90.710 Acquired absence of both cervix and uterus; Z79.01 Long term (current) use of anticoagulants; Z79.02 Long term (current) use of antithrombotics/antiplatelets; Z79.899 Other long term (current) drug therapy; Z88.5 Allergy status to narcotic agent; W19.XXXA Unspecified fall, initial encounter; Y93.89 Activity, other specified; Y92.89 Other specified places as the place of occurrence of the external cause; Y99.8 Other external cause status
CPT/HCPCS: 80048; 85025; 85610; 99284